=== PATIENT | female | born 1980 | race African-American/Black ===

== ENCOUNTER 2024-12-06 09:33 | Emergency (ER) | payer MEDICAID ==
[2024-12-06] MEDS: Ibuprofen 800 MG Tab PO ONE (12:10)
[2024-12-06] MEDS: Acetaminophen 325 MG Tab PO ONE (12:11)
== END 2024-12-06 13:00 | disposition home or self-care (01) ==
LOC: JD.ED 09:33
DX: S69.91XA Unspecified injury of right wrist, hand and finger(s), initial encounter (principal); F17.210 Nicotine dependence, cigarettes, uncomplicated; Z90.49 Acquired absence of other specified parts of digestive tract; Z90.710 Acquired absence of both cervix and uterus; W20.8XXA Other cause of strike by thrown, projected or falling object, initial encounter
CPT/HCPCS: 73090; 73110; 73130; 99283; A9270